=== PATIENT | male | born 1960 ===

== ENCOUNTER 2017-09-14 13:35 | Emergency (ER) | payer MEDICARE, BC ==
[2017-09-14 13:54] LABS: #Basophils 0.1 thou/uL (0.0-0.2); #Eosinphils 0.3 thou/uL (0.0-0.7); #Lymphocytes 1.4 thou/uL (1.20-3.40); #Monocytes 0.4 thou/uL (0.11-0.59); #Neutrophils 2.6 thou/uL (1.40-6.50); %Basophils 1.1 % (0.0-1.0); %Eosinophils 5.9 % (0.0-10.0); %Lymphocytes 30.4 % (21.0-51.0); %Monocytes 7.9 % (0.0-10.0); %Neutrophils 54.7 % (42.0-75.0); Hemoglobin 14.5 g/dL (14.0-18.0); Mean Corpuscular HGB CONC 32.6 g/dL (32.0-36.0); Mean Corpuscular Hemoglobin 27.9 pg (27.0-31.0); Mean Corpuscular Volume 85.4 fL (78.0-98.0); Platelet Count 244 thou/uL (130-400); RBC Distribution Width 11.1 % (11.5-14.5); Red Blood Cell (RBC) Count 5.22 mill/uL (4.70-6.10); White Blood Cell (WBC) Count 4.7 thou/uL (4.8-10.8)
[2017-09-14 14:06] LABS: PTT 31.1 SEC (22.9-36.1); Prothrombin Time 13.5 SEC (12.0-14.7)
[2017-09-14 14:15] LABS: ALT (SGPT) 28 U/L (8-55); AST (SGOT) 25 U/L (5-34); Albumin 4.5 g/dL (3.5-5.0); Alkaline Phosphatase 69 U/L (40-150); Anion Gap 17 mmol/L (10-20); BUN (Urea Nitrogen) 16 mg/dL (8.4-25.7); Bilirubin, Total 0.6 mg/dL (0.2-1.2); Calc. Creatinine Clearance 0 mL/min (70-130); Calcium 10.2 mg/dL (7.8-10.44); Carbon Dioxide 18 mmol/L (22-29); Chloride 101 mmol/L (98-107); Estimated GFR-MDRD Greater than 90; Globulin 3.1 g/dL (2.4-3.5); Glucose 140 mg/dL (70-105); Potassium 3.3 mmol/L (3.5-5.1); Protein, Total 7.6 g/dL (6.0-8.3); Sodium 133 mmol/L (136-145)
[2017-09-14 14:16] LABS: CKMB 0.5 ng/mL (0-6.6); Troponin I Less than 0.010 ng/mL (< 0.028)
[2017-09-14] MEDS ORDERED: Sodium Chloride 0.9% 0 ML ONE (14:40)
--- NOTE | 2017-09-14 15:31 | RAD ---
PORTABLE AP CHEST XRAY: DATE: 09/14/17. HISTORY: Chest pain. COMPARISON: 03/19/05. FINDINGS: The cardiac silhouette and pulmonary vasculature are within normal limits. The lungs are clear. The re has been no interval change from the prior exam. IMPRESSION: No acute cardiopulmonary process. POS: [facility]
== END 2017-09-14 15:10 | disposition home or self-care (01) ==
LOC: NAV ERS 13:35
DX: F41.1 Generalized anxiety disorder (principal); R07.89 Other chest pain; E11.9 Type 2 diabetes mellitus without complications; E78.5 Hyperlipidemia, unspecified; I10 Essential (primary) hypertension; Z79.899 Other long term (current) drug therapy; Z79.891 Long term (current) use of opiate analgesic; Z79.84 Long term (current) use of oral hypoglycemic drugs
CPT/HCPCS: 71045; 80053; 82553; 83880; 84484; 85025; 85610; 85730; 93005; 94760; J7050